=== PATIENT | female | born 1985 | race Caucasian/White ===

== ENCOUNTER 2021-06-14 19:59 | Emergency (ER) | payer OTHER ==
[2021-06-14 20:08] VITALS: BP 131/87; PULSE 99; TEMP 98.8; BMI 30.2
[2021-06-14] MEDS ORDERED: ACETAMINOPHEN 500 MG TABLET (FP) PO ONE (20:40)
[2021-06-14] MEDS ORDERED: ACETAMINOPHEN 325 MG TABLET (FP) ONE (20:55)
[2021-06-14 21:11] LABS: BASO % 0.8 % (0-2.0); EOS % 3.2 % (0-4.5); HEMATOCRIT 35.1 % (32.4-45.2); HEMOGLOBIN 11.7 GM/dL (10.7-15.3); MCH 30.4 pg (25.7-33.7); MCHC 33.2 g/dl (32.0-36.0); MEAN CELL VOLUME 91.5 fl (80-96); MEAN PLT VOLUME 7.6 fl (7.5-11.1); MONO % 11.6 % (3.8-10.2); NEUT % 55.4 % (42.8-82.8); PLATELET COUNT 282 10^3/uL (134-434); RBC 3.84 M/mm3 (3.60-5.2); RDW 12.8 % (11.6-15.6); WHITE BLOOD COUNT 4.2 K/mm3 (4.0-10.0)
[2021-06-14 21:32] LABS: EPI CELLS >36 /uL (0-25.1); HYALINE CASTS 1 /uL (0-3.1); PH,URINE 6.5 (5.0-8.0); URINE APPEARANCE CLOUDY; URINE BACTERIA 4054 /uL (0-1359); URINE BILIRUBIN NEGATIVE (NEGATIVE); URINE COLOR ORANGE; URINE GLUCOSE (UA) NEGATIVE (NEGATIVE); URINE KETONE NEGATIVE (NEGATIVE); URINE LEUK ESTERASE 1+ (NEGATIVE); URINE NITRITE NEGATIVE (NEGATIVE); URINE PROTEIN NEGATIVE (NEGATIVE); URINE UROBILINOGEN 0.2 mg/dL (0.2-1.0); URINE WBC 146 /uL (0-25.8)
[2021-06-14 21:43] LABS: CALCIUM 8.9 mg/dL (8.5-10.1)
[2021-06-14 21:44] LABS: BLOOD UREA NITROGEN 8.8 mg/dL (7-18)
[2021-06-14 21:47] LABS: CREATININE 0.6 mg/dL (0.55-1.3)
[2021-06-14 22:08] LABS: URINE RBC 17 /uL (0-23.9)
== END 2021-06-14 23:32 | disposition home or self-care (01) ==
LOC: JER 19:59
DX: O03.4 Incomplete spontaneous abortion without complication (principal)
CPT/HCPCS: 36415; 76801-TC; 80048; 81003; 85025; 86850; 86900; 86901; 87086; 99284-25